=== PATIENT | male | born 1995 | race Caucasian/White ===

== ENCOUNTER 2017-08-06 21:29 | Emergency (ER) | payer BC ==
[2017-08-06 21:35] VITALS: RESP 18
[2017-08-06 21:39] LABS: Glucose,Whole Blood 93 mg/dL (75-99)
[2017-08-06 22:34] VITALS: BP 116/58; PULSE 88; TEMP 97.9
--- NOTE | 2017-08-06 22:39 | ED ---
Syncope HPI - General Chief Complaint: Syncope Stated Complaint: Syncope Time Seen by Provider: 08/06/17 21:30 Source: patient, EMS Mode of arrival: ambulatory Limitations: no limitations - History of Present Illness Initial Comments: This patient is 22-year-old man who is brought to be evaluated after he had passed out. Patient arrives by ambulance. He is accompanied by his girlfriend who witnessed the episode. The patient states that he had been drinking and then also smokes marijuana. He was going to get up from a seated position and then passed out. The patient did not have any injury as a result. He states that he feels back to his baseline area he did not have any prodromal symptoms. He denies a feeling of palpitations, chest pain, dyspnea, diaphoresis, nausea or vomiting. There was no incontinence and no tonic-clonic movements were observed. There was no postictal type period. MD Complaint: loss of consciousness -: minutes(s) Prodromal Symptoms: none -: second(s) Witnessed: yes - by bystander Injuries Sustained Associated with Event: None Current Symptoms: back to baseline Context: alcohol use, illicit drug use Treatments Prior to Arrival: IV fluids - Related Data Home Medications Medication Instructions Recorded Confirmed No Known Home Medications [No 08/06/17 08/06/17 Known Home Medications] Allergies Allergy/AdvReac Type Severity Reaction Status Date / Time No Known Allergies Allergy Verified 08/06/17 21:54 Review of Systems ROS Statement: Those systems with pertinent positive or pertinent negative responses have been documented in the HPI. ROS Other: All systems not noted in ROS Statement are negative. Constitutional: Denies: fever, chills, weakness Eyes: Denies: vision change Respiratory: Denies: cough, dyspnea Cardiovascular: Reports: syncope. Denies: chest pain, palpitations, edema Gastrointestinal: Denies: abdominal pain, vomiting Genitourinary: Denies: dysuria, hematuria Musculoskeletal: Denies: back pain Skin: Denies: rash Neurological: Denies: headache, weakness, numbness, confusion Psychiatric: Denies: anxiety Past Medical History Past Medical History: No Reported History History of Any Multi-Drug Resistant Organisms: None Reported Past Surgical History: No Surgical Hx Reported Past Psychological History: No Psychological Hx Reported Smoking Status: Current some day smoker Past Alcohol Use History: Occasional Past Drug Use History: Marijuana General Exam Limitations: no limitations General appearance: alert, in no apparent distress, appears intoxicated Head exam: Present: atraumatic, normocephalic Eye exam: Present: normal appearance. Absent: scleral icterus, conjunctival injection ENT exam: Present: normal oropharynx Neck exam: Present: normal inspection Respiratory exam: Present: normal lung sounds bilaterally. Absent: respiratory distress, wheezes, rales, rhonchi, stridor Cardiovascular Exam: Present: regular rate, normal rhythm, normal heart sounds. Absent: systolic murmur, diastolic murmur, rubs, gallop GI/Abdominal exam: Present: soft. Absent: distended, tenderness, guarding, rebound, rigid, mass Extremities exam: Present: normal inspection, normal capillary refill. Absent: pedal edema, calf tenderness Back exam: Present: normal inspection. Absent: CVA tenderness (R), CVA tenderness (L) Neurological exam: Present: alert, oriented X3, CN II-XII intact, normal gait. Absent: motor sensory deficit Skin exam: Present: warm, dry, intact, normal color. Absent: rash Course Vital Signs 08/06/17 08/06/17 21:32 22:34 Temperature 97.8 F 97.9 F Pulse Rate 86 88 Respiratory 18 18 Rate Blood Pressure 127/64 116/58 O2 Sat by Pulse 96 98 Oximetry EKG Findings - EKG Comments: EKG Findings:: Twelve-lead ECG shows sinus rhythm with sinus arrhythmia, rate 76 bpm. FL interval 108 ms, short. There may be a delta wave in lead V3. - EKG Results: EKG: interpreted by ERMD, sinus rhythm, normal axis, normal QRS, normal ST/T Medical Decision Making - Lab Data Lab Results 08/06/17 Range/Units 21:38 POC Glucose (mg/dL) 93 (75-99) mg/dL POC Glu Transmission Repairer ID Sirisha Felton Disposition Clinical Impression: Syncope Disposition: HOME SELF-CARE Condition: Good Instructions: Syncope (ED) Referrals: None,Stated [Primary Care Provider] - 1-2 days Porfirio Dunlap MD [STAFF PHYSICIAN] - 1-2 days
== END 2017-08-06 22:43 | disposition home or self-care (01) ==
LOC: EC 21:29
DX: R55 Syncope and collapse (principal); F17.200 Nicotine dependence, unspecified, uncomplicated
CPT/HCPCS: 36415; 93005; 99284